=== PATIENT | female | born 1940 | race Caucasian/White ===

== ENCOUNTER 2016-10-03 16:32 | Inpatient (IN) | payer MEDICARE ==
[~2016-10-03] VITALS: Ht 160 cm; Wt 55.9 kg
[2016-10-03 17:31] LABS: ARTERIAL BLD GAS O2 SATURATION 92.2 % (92-100); ARTERIAL BLD GAS TCO2 CT 27.9; ARTERIAL BLOOD GAS BASE EXCESS 2.8 (-2-2); ARTERIAL BLOOD GAS HCO3 26.7 meq/L (22-26); ARTERIAL BLOOD GAS PHT 7.46 C (7.35-7.45); ARTERIAL BLOOD GAS PO2 64.1 mmHg (80-100); ARTERIAL BLOOD GAS PO2T 64.1 (80-100); ARTERIAL BLOOD GAS pH 7.46 (7.35-7.45); OXYHEMOGLOBIN 90.9 %
[2016-10-03 17:32] LABS: ALLEN TEST YES; ALLENS TEST RESULT PASS; ATS? YES
[2016-10-03 17:33] LABS: HEMOGLOBIN 12.4 g/dl (12.5-16.0); MEAN CELL VOLUME 87 fl (80.0-100.0); MEAN CORPUSCULAR HEMOGLOBIN 30 pg (27.0-31.0); MEAN CORPUSCULAR HGB CONC 34 g/dl (33.0-37.0); MEAN PLATELET VOLUME 9.8 fl (7.4-10.4); PLATELET COUNT 334 K/mm3 (130-400); RED BLOOD COUNT 4.18 M/mm3 (4.10-5.30); REDCELL DISTRIBUTION WIDTH-CV 12.3 % (11.5-14.5); WHITE BLOOD COUNT 10.9 K/mm3 (4.8-10.8)
[2016-10-03 17:34] LABS: HEMATOCRIT 36.4 % (37.0-47.0)
[2016-10-03 17:35] LABS: ADD PATHOLOGY DIFF REVIEW NO
[2016-10-03 17:46] LABS: ADJUSTED CALCIUM 10.2 mg/dL (8.4-10.2); ALANINE AMINOTRANSFERASE 37 U/L (9-52); ALBUMIN 3.5 gm/dL (3.5-5.0); ALKALINE PHOSPHATASE 70 U/L (50-136); ANION GAP 13 mmol/L (7-16); BILIRUBIN,TOTAL 0.8 mg/dL (0.0-1.0); BLOOD UREA NITROGEN 15 mg/dL (7-17); CALCIUM 9.8 mg/dL (8.4-10.2); CARBON DIOXIDE 27 mmol/L (22-30); CHLORIDE 100 mmol/L (98-107); CREATININE, serum 0.79 mg/dL (0.52-1.25); GLUCOSE 108 mg/dL (74-106); POTASSIUM 3.4 mmol/L (3.4-5.0); SODIUM 140 mmol/L (137-145); TOTAL PROTEIN 7.1 gm/dL (6.4-8.2)
[2016-10-03 17:55] LABS: B-TYPE NATRIURETIC PEPTIDE 663 pg/mL (0-450)
[2016-10-03] MEDS ORDERED: TIMOLOL MALEATE5 M1 OP (17:58)
[2016-10-03 17:59] LABS: TROPONIN-I < 0.012 ng/mL (0.000-0.034)
[2016-10-03] MEDS ORDERED: XALATAN EYE DROPS OD (17:59)
[2016-10-03] MEDS ORDERED: AZOPT 10 ML10 ML OD (18:00)
[2016-10-03 18:26] LABS: INFLUENZA B NEGATIVE
[2016-10-03 19:19] VITALS: BP 115/57; PULSE 72; TEMP 98.2
[2016-10-03 20:20] LABS: BAND 17 % (0-10); NEUTROPHILS 63 % (42.0-75.2); TOTAL CELLS COUNTED 100
[2016-10-04] VITALS (7 sets, daily range): BP systolic 114–146; BP diastolic 52–62; PULSE 68–80; TEMP 97.4–98
[2016-10-04 07:56] LABS: CREATININE, serum 0.7 mg/dL (0.52-1.25); POTASSIUM 3.6 mmol/L (3.4-5.0)
[2016-10-05 03:50] VITALS: BP 158/58; PULSE 71; TEMP 98.4
[2016-10-05 08:12] VITALS: BP 177/70; PULSE 71; TEMP 97.4
[2016-10-05 11:51] VITALS: BP 149/60; PULSE 83; TEMP 97.4
[2016-10-05 15:04] VITALS: BP 127/51; PULSE 71; TEMP 97.8
[2016-10-05 19:57] VITALS: BP 166/71; PULSE 76; TEMP 97.5
[2016-10-06 00:31] VITALS: BP 164/75; PULSE 71; TEMP 97.5
[2016-10-06 02:55] VITALS: BP 181/75; PULSE 82; TEMP 98.2
[2016-10-06 07:49] LABS: HEMATOCRIT 37.4 % (37.0-47.0); HEMOGLOBIN 12.4 g/dl (12.5-16.0); MEAN CELL VOLUME 88 fl (80.0-100.0); MEAN CORPUSCULAR HEMOGLOBIN 29 pg (27.0-31.0); MEAN CORPUSCULAR HGB CONC 33 g/dl (33.0-37.0); MEAN PLATELET VOLUME 9.8 fl (7.4-10.4); RED BLOOD COUNT 4.24 M/mm3 (4.10-5.30); REDCELL DISTRIBUTION WIDTH-CV 12.4 % (11.5-14.5); WHITE BLOOD COUNT 12.3 K/mm3 (4.8-10.8)
[2016-10-06 07:50] LABS: PLATELET COUNT 500 K/mm3 (130-400)
[2016-10-06 07:51] VITALS: BP 169/81; PULSE 75; TEMP 97.5
[2016-10-06 08:11] LABS: CALCIUM 9.1 mg/dL (8.4-10.2); CREATININE, serum 0.74 mg/dL (0.52-1.25); POTASSIUM 3.3 mmol/L (3.4-5.0)
[2016-10-06 11:48] VITALS: BP 181/74; PULSE 73; TEMP 97.4
[2016-10-06 12:28] LABS: MAGNESIUM 2.1 mg/dL (1.6-2.3)
[2016-10-06 16:19] VITALS: BP 169/73; PULSE 66; TEMP 97.4
[2016-10-06 20:03] VITALS: BP 135/54; PULSE 74; TEMP 98.4
[2016-10-07 00:26] VITALS: BP 140/75; PULSE 67; TEMP 98
[2016-10-07 03:54] VITALS: BP 163/73; PULSE 65; TEMP 97.7
[2016-10-07 07:59] LABS: BASO % 0.2 % (0.0-2.0); GRAN # 7.1 (1.4-6.5); GRAN % 73.6 % (42.2-75.2); HEMATOCRIT 37.8 % (37.0-47.0); HEMOGLOBIN 12.4 g/dl (12.5-16.0); LYMPH # 1.4 (1.2-3.4); LYMPH % 14.2 % (20.0-51.0); MEAN CELL VOLUME 89 fl (80.0-100.0); MEAN CORPUSCULAR HEMOGLOBIN 29 pg (27.0-31.0); MEAN CORPUSCULAR HGB CONC 33 g/dl (33.0-37.0); MEAN PLATELET VOLUME 9.6 fl (7.4-10.4); MONO % 10.7 % (1.7-9.3); PLATELET COUNT 486 K/mm3 (130-400); RED BLOOD COUNT 4.25 M/mm3 (4.10-5.30); REDCELL DISTRIBUTION WIDTH-CV 12.4 % (11.5-14.5); WHITE BLOOD COUNT 9.7 K/mm3 (4.8-10.8)
[2016-10-07 08:07] LABS: CALCIUM 9.1 mg/dL (8.4-10.2); CREATININE, serum 0.74 mg/dL (0.52-1.25); POTASSIUM 3.5 mmol/L (3.4-5.0)
[2016-10-07 08:29] VITALS: BP 171/80; PULSE 72; TEMP 97.4
[2016-10-07 11:28] VITALS: BP 137/68; PULSE 69; TEMP 97.9
[2016-10-07 15:29] VITALS: BP 147/71; PULSE 77; TEMP 97.4
[2016-10-07 20:16] VITALS: BP 142/70; PULSE 74; TEMP 98.3
[2016-10-08] VITALS (7 sets, daily range): BP systolic 138–182; BP diastolic 60–82; PULSE 54–78; TEMP 97–98.5
[2016-10-08 07:19] LABS: HEMOGLOBIN 12.9 g/dl (12.5-16.0); MEAN CELL VOLUME 89 fl (80.0-100.0); MEAN CORPUSCULAR HEMOGLOBIN 29 pg (27.0-31.0); MEAN CORPUSCULAR HGB CONC 33 g/dl (33.0-37.0); MEAN PLATELET VOLUME 9.4 fl (7.4-10.4); PLATELET COUNT 470 K/mm3 (130-400); RED BLOOD COUNT 4.39 M/mm3 (4.10-5.30); REDCELL DISTRIBUTION WIDTH-CV 12.3 % (11.5-14.5); WHITE BLOOD COUNT 11.2 K/mm3 (4.8-10.8)
[2016-10-08 07:33] LABS: CREATININE, serum 0.72 mg/dL (0.52-1.25)
[2016-10-09] VITALS (7 sets, daily range): BP systolic 130–173; BP diastolic 61–89; PULSE 63–76; TEMP 97.6–97.9
[2016-10-09 06:39] LABS: HEMATOCRIT 40.8 % (37.0-47.0); HEMOGLOBIN 13.2 g/dl (12.5-16.0); MEAN CELL VOLUME 90 fl (80.0-100.0); MEAN CORPUSCULAR HEMOGLOBIN 29 pg (27.0-31.0); MEAN CORPUSCULAR HGB CONC 32 g/dl (33.0-37.0); MEAN PLATELET VOLUME 9.2 fl (7.4-10.4); PLATELET COUNT 451 K/mm3 (130-400); RED BLOOD COUNT 4.54 M/mm3 (4.10-5.30); REDCELL DISTRIBUTION WIDTH-CV 12.4 % (11.5-14.5); WHITE BLOOD COUNT 13.8 K/mm3 (4.8-10.8)
[2016-10-09 06:56] LABS: CALCIUM 8.9 mg/dL (8.4-10.2); CREATININE, serum 0.74 mg/dL (0.52-1.25); POTASSIUM 4.1 mmol/L (3.4-5.0)
[2016-10-09] MEDS ORDERED: ZITHROMAX500 M2 PO (14:00)
[2016-10-09] MEDS ORDERED: ZESTRIL40 MG PO (14:01)
[2016-10-09] MEDS ORDERED: PULMICORT0.25 MG/2 IH (14:06)
[2016-10-09] MEDS ORDERED: PREDNISONE20 MG PO (14:09)
[2016-10-09] MEDS ORDERED: IPRATROPIUM BROM3 M1 IH (14:09)
== END 2016-10-09 17:47 | disposition home or self-care (01) | DRG 193 ==
LOC: COL.ER 16:32 → MEDICAL 18:11
PROVIDERS: Emergency Medicine; Internal Medicine; Internal Medicine Pulmonary Disease; Nurse Practitioner Family
PROC: 0B968ZX Drainage of Right Lower Lobe Bronchus, Via Natural or Artificial Opening Endoscopic, Diagnostic (ICD-10-PCS; 2016-10-09)
PROC: 0BCB8ZZ Extirpation of Matter from Left Lower Lobe Bronchus, Via Natural or Artificial Opening Endoscopic (ICD-10-PCS; 2016-10-09)
PROC: 0B958ZX Drainage of Right Middle Lobe Bronchus, Via Natural or Artificial Opening Endoscopic, Diagnostic (ICD-10-PCS; principal; 2016-10-09 11:30)
DX: J18.9 Pneumonia, unspecified organism (principal); J96.01 Acute respiratory failure with hypoxia; J90 Pleural effusion, not elsewhere classified; J98.11 Atelectasis; J20.9 Acute bronchitis, unspecified; F17.210 Nicotine dependence, cigarettes, uncomplicated; I10 Essential (primary) hypertension; E87.6 Hypokalemia; D64.9 Anemia, unspecified
CPT/HCPCS: 99222-AI; 99231-AI; 99232-AI; 99239; J0456; J0696; J1650; J1940; J2060; J2704; J2920; J2930; J7030; J7050; J7512; Q9967

== ENCOUNTER → 2016-10-18 | Outpatient (CLI) | payer MEDICARE ==
[~2016-10-18] MED LIST: AZOPT 10 ML10 ML OD; IPRATROPIUM BROM3 M1 IH; PREDNISONE20 MG PO; PULMICORT0.25 MG/2 IH; TIMOLOL MALEATE5 M1 OP; XALATAN EYE DROPS OD; ZESTRIL40 MG PO; ZITHROMAX500 M2 PO
== END ==
LOC: COL.PUL 09:55
DX: J18.9 Pneumonia, unspecified organism (principal)

== ENCOUNTER → 2019-07-16 | Outpatient (CLI) | payer MEDICARE | LOC: COL.RAD 09:12 | DX: D64.9 Anemia, unspecified (principal); R91.8 Other nonspecific abnormal finding of lung field; M48.54XA Collapsed vertebra, not elsewhere classified, thoracic region, initial encounter for fracture; M48.56XA Collapsed vertebra, not elsewhere classified, lumbar region, initial encounter for fracture ==

== ENCOUNTER 2019-08-14 06:52 | Outpatient (CLI) | payer MEDICARE ==
[~2019-08-14] VITALS: Ht 157.5 cm; Wt 83.0 kg
[2019-08-14] VITALS (15 sets, daily range): BP systolic 81–1227; BP diastolic 46–99; PULSE 60–79
[~2019-08-14 06:52] MED LIST changes: +COSOPT 2%-0.5%10 ML OU; +REFRESH TEARS 330 ML OP; +TRELEGY ELLIPT1 EACH IH; +VENTOLIN0.09 MG IH; -XALATAN EYE DROPS OD; +XALATAN EYE DROPS OU; +ZESTRIL 20MG TA20 MG PO
--- NOTE | 2019-08-14 07:55 | NUR ---
Pt ambulates to ct. Pt positioned in prone position, O2 on at 2l/nc. Monitors applied to pt.
--- NOTE | 2019-08-14 08:00 | NUR ---
Dr Crenshaw into room and talks with pt.
--- NOTE | 2019-08-14 08:13 | NUR ---
Specimen obtained by Dr Crenshaw from left lower lung. Specimens placed in formalin. Specimens labeled.
--- NOTE | 2019-08-14 08:23 | NUR ---
Pt arrived to room 10 via cart,report from Nori Rossi.Pt reports "tight in my marquita" upon arrival.Per [place] no chest xray done yet.Dr Crenshaw notified by me,Chest xray ordered.See flowsheet for vitals.
--- NOTE | 2019-08-14 09:34 | NUR ---
Dr Crenshaw here to see pt.Per order Tylenol 650mg po.
--- NOTE | 2019-08-14 10:00 | NUR ---
Pt resting,eyes closed,respirations even and unlabored.pt son at bedside.
--- NOTE | 2019-08-14 10:30 | NUR ---
Per pt report no pain at this time.
--- NOTE | 2019-08-14 10:41 | NUR ---
Discharge instructions given to pt.pt verbalizes understanding.INT removed,catheter tip intact.pt escorted out via wheelchair by this nurse.
== END 2019-08-14 10:45 | disposition home or self-care (01) ==
LOC: COL.RAD 06:52
DX: D64.9 Anemia, unspecified (principal); R07.9 Chest pain, unspecified; R91.1 Solitary pulmonary nodule

== ENCOUNTER 2022-04-11 10:06 | Outpatient (RCR) | payer MEDICARE | END 2022-04-23 | disposition home or self-care (01) | LOC: COL.CR | DX: J44.9 Chronic obstructive pulmonary disease, unspecified (principal) ==

== ENCOUNTER 2022-05-23 13:54 | Outpatient (RCR) | payer MEDICARE | END 2022-05-24 | disposition home or self-care (01) | LOC: COL.CR | DX: J44.9 Chronic obstructive pulmonary disease, unspecified (principal) ==

== ENCOUNTER 2022-06-15 14:12 | Outpatient (RCR) | payer MEDICARE | END 2022-06-20 12:05 | disposition home or self-care (01) | LOC: COL.CR 14:12 | DX: J44.9 Chronic obstructive pulmonary disease, unspecified (principal) ==

== ENCOUNTER 2023-06-08 11:16 | Outpatient (CLI) | payer MEDICARE ==
[~2023-06-08] VITALS: Ht 157.5 cm; Wt 63.5 kg
[~2023-06-08 11:16] MED LIST changes: +ZESTRIL 10MG10 MG PO; -ZESTRIL 20MG TA20 MG PO
[2023-06-08 11:37] VITALS: BP 100/54; PULSE 53; TEMP 97.7
[2023-06-08] MEDS ORDERED: TYLENOL W/COD1 UDTAB PO (11:47)
[2023-06-08] MEDS ORDERED: PRESERVISION1 SGL PO (11:50)
[2023-06-08] MEDS ORDERED: VITAMIN D31000 I1 PO (11:51)
[2023-06-08] MEDS ORDERED: TIMOLOL MALEATE5 M1 OP (11:52)
[2023-06-08] MEDS ORDERED: BREZTRI AEROS10.7 GM IH (11:52)
--- NOTE | 2023-06-08 11:59 | NUR ---
Pt tolerated prolia without issue. She is escorted out to entrance, gait steady and no further c/o dizziness. She is free of complaints at time of departure. She has ride waiting in parking lot.
== END 2023-06-08 12:00 | disposition home or self-care (01) ==
LOC: EUO 11:16
DX: M81.0 Age-related osteoporosis without current pathological fracture (principal)
CPT/HCPCS: J0897

== ENCOUNTER → 2024-07-24 | Outpatient (RCR) | payer MEDICARE ==
[~2024-07-24] MED LIST changes: +BREZTRI AEROS10.7 GM IH; +PRESERVISION1 SGL PO; +TYLENOL 325MG325 MG PO; +TYLENOL W/COD1 UDTAB PO; +VITAMIN D31000 I1 PO
== END | disposition home or self-care (01) ==
LOC: COL.CR
DX: Z02.89 Encounter for other administrative examinations (principal)